=== PATIENT | male | born 1995 | race Caucasian/White ===

== ENCOUNTER 2022-08-07 14:11 | Emergency (ER) | payer SELFPAY ==
[~2022-08-07] VITALS: Ht 185.4 cm; Wt 88.5 kg
[2022-08-07 14:11] VITALS: BP 136/76
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
--- NOTE | 2022-08-07 15:34 | NUR ---
Patient discharged to home in stable condition. Written and verbal after care instructions given. Patient verbalizes understanding of instruction.
== END 2022-08-07 15:36 | disposition home or self-care (01) ==
LOC: ER 14:13
DX: S62.337A Displaced fracture of neck of fifth metacarpal bone, left hand, initial encounter for closed fracture (principal); X58.XXXA Exposure to other specified factors, initial encounter; Y93.89 Activity, other specified; Y92.89 Other specified places as the place of occurrence of the external cause; Y99.8 Other external cause status
CPT/HCPCS: 73130-TC